=== PATIENT | female | born 1990 | race Caucasian/White ===

== ENCOUNTER 2019-02-26 02:24 | Emergency (ER) | payer OTHER ==
[2019-02-26 02:55] LABS: BASOPHILS # (AUTO) 0.1 10^3/uL (0.0-0.1); BASOPHILS % (AUTO) 0.5 %; EOSINOPHILS # (AUTO) 0.2 10^3/uL (0.0-0.7); EOSINOPHILS % (AUTO) 1.5 %; HGB - HEMOGLOBIN 15.5 g/dL (12.0-16.0); LYMPHOCYTES # (AUTO) 4.3 10^3/uL (1.5-3.5); LYMPHOCYTES % (AUTO) 41.6 %; MEAN CORPUSCULAR HEMOGLOBIN 31.6 pg (27.0-31.0); MEAN CORPUSCULAR HGB CONC 34.2 g/dL (32.0-36.0); MEAN CORPUSCULAR VOLUME 92.4 fL (81.0-99.0); MEAN PLATELET VOLUME 8.6 fL (7.9-10.8); MONOCYTES # (AUTO) 0.7 10^3/uL (0.0-1.0); MONOCYTES % (AUTO) 6.5 %; NEUTROPHILS # (AUTO) 5.1 10^3/uL (1.5-6.6); NEUTROPHILS % (AUTO) 49.4 %; PLT - PLATELET COUNT 298 10^3/uL (130-450); RED CELL DISTRIBUTION WIDTH 12.4 % (12.0-15.0); WHITE BLOOD COUNT 10.3 x10^3/uL (4.8-10.8)
[2019-02-26 02:57] LABS: MUDS CUTOFF CONCENTRATIONS CUTOFF CONC BELOW:
[2019-02-26 03:07] LABS: CALCIUM 9.5 mg/dL (8.5-10.3); CREATININE 0.6 mg/dL (0.4-1.0)
[2019-02-26 03:18] LABS: HCG UR QUAL NEGATIVE
[2019-02-26 03:19] LABS: AMPHETAMINE SCREEN,URINE NEGATIVE (NEGATIVE); BENZODIAZEPINES SCREEN, URINE NEGATIVE (NEGATIVE); COCAINE SCREEN URINE POSITIVE (NEGATIVE); METHADONE SCREEN, URINE NEGATIVE (NEGATIVE); METHAMPHETAMINES SCREEN, URINE NEGATIVE (NEGATIVE); OPIATE SCREEN, URINE NEGATIVE (NEGATIVE); OXYCODONE SCREEN, URINE NEGATIVE (NEGATIVE); PROPOXYPHENE SCREEN, URINE NEGATIVE (NEGATIVE); TRICYCLIC ANTIDEPRESSANT,URINE NEGATIVE (NEGATIVE)
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
[2019-02-26 06:07] LABS: CLARITY,URINE CLEAR (CLEAR); LEUKOCYTE ESTERASE, URINE NEGATIVE (NEGATIVE); NITRITE,URINE NEGATIVE (NEGATIVE); PH,URINE 5.5 PH (5.0-7.5); PROTEIN,URINE NEGATIVE (NEGATIVE); UROBILINOGEN,URINE 0.2 (NORMAL) E.U./dL (NORMAL)
[2019-02-26 06:08] LABS: BILIRUBIN,URINE NEGATIVE (NEGATIVE); GLUCOSE, URINE (UA) NEGATIVE (NEGATIVE); KETONES,URINE (UA) NEGATIVE (NEGATIVE); OCCULT BLOOD,URINE NEGATIVE (NEGATIVE)
[2019-02-26 13:56] LABS: MUDS CUTOFF CONCENTRATIONS CUTOFF CONC BELOW:
[2019-02-26 14:18] LABS: COCAINE SCREEN URINE POSITIVE (NEGATIVE)
[2019-02-26 14:19] LABS: AMPHETAMINE SCREEN,URINE NEGATIVE (NEGATIVE); BENZODIAZEPINES SCREEN, URINE NEGATIVE (NEGATIVE); METHADONE SCREEN, URINE NEGATIVE (NEGATIVE); METHAMPHETAMINES SCREEN, URINE NEGATIVE (NEGATIVE); OPIATE SCREEN, URINE NEGATIVE (NEGATIVE); OXYCODONE SCREEN, URINE NEGATIVE (NEGATIVE); PROPOXYPHENE SCREEN, URINE NEGATIVE (NEGATIVE); TRICYCLIC ANTIDEPRESSANT,URINE NEGATIVE (NEGATIVE)
[2019-02-26] MEDS ORDERED: LORazepam 1 MG TABLET PO STA (17:55)
[2019-02-26 18:17] VITALS: BP 133/89
--- NOTE | 2019-02-26 18:26 | ED Physician Documentation ---
ED Addendum - Addendum Addendum: 02/26/19 18:24 The patient talked with the social and political studies professor and arrangements were made to get to a detox facility. However the patient did become more concerned about missing work and felt she wanted to just be home and take medications. She would like to stop drinking. She is concerned about withdrawal. I told her we could prescribe her medications for nausea and withdrawal. She should follow-up with counseling regarding her PTSD and depression. She would also want to follow-up with a primary care as well. She denies any suicidal ideation. She states she does not want to hurt her self and wants to keep working. At this point we can discharge her with prescriptions.
== END 2019-02-26 18:50 | disposition home or self-care (01) ==
LOC: ED 02:24
DX: F33.1 Major depressive disorder, recurrent, moderate (principal); F10.920 Alcohol use, unspecified with intoxication, uncomplicated
CPT/HCPCS: 36415; 80048; 80320; 81003; 81025; 85025; 99283; 99284; J8499; 80306; 81001; 87086

== ENCOUNTER 2019-10-03 18:20 | Outpatient (CLI) | payer OTHER | END 2019-10-03 18:21 | disposition home or self-care (01) | LOC: COV 18:20 | PROVIDERS: ATTEND Family Medicine | DX: R50.9 Fever, unspecified (principal) | CPT/HCPCS: 81599 ==

== ENCOUNTER 2020-05-20 11:08 | Outpatient (CLI) | payer OTHER | END 2020-05-20 11:09 | disposition home or self-care (01) | LOC: COV 11:08 | PROVIDERS: ATTEND Family Medicine | DX: R50.9 Fever, unspecified (principal); R05 Cough; Z20.828 Contact with and (suspected) exposure to other viral communicable diseases; R53.83 Other fatigue; R43.9 Unspecified disturbances of smell and taste; J02.9 Acute pharyngitis, unspecified; R09.81 Nasal congestion ==

== ENCOUNTER 2020-07-09 12:36 | Emergency (ER) | payer OTHER ==
--- NOTE | 2020-07-09 13:02 | ED Physician Documentation ---
History of Present Illness - Stated complaint Stated Complaint: BACK/SIDE PX - History obtained from History obtained from: Patient - Additonal information Additional information: 29-year-old female presents the emergency department for evaluation of bilateral mid to low back pain and concerns of urinary tract infection. She reports that about 2 weeks ago she had dysuria and urgency. She attempted [id number] probiotic and cranberry juice without relief. She called the telehealth physician on Tuesday and was prescribed azithromycin for suspected urinary tract infection. Today is her last day of the Z-Vic. Since starting the Z-Vic the urgency and urinary frequency has dissipated but the mid to low back pain has persisted. No fevers she has vomited once which she attributes to the antibiotic use. Denies any chest pain or shortness of breath. In 2013 she developed a kidney infection and had subsequent acute kidney injury. She states that she was seen by urologist in follow-up and at the time of follow-up had been told that her kidney function had returned to normal. She has not been seen since. Review of Systems Constitutional: denies: Fever, Chills Eyes: reports: Reviewed and negative Ears: reports: Reviewed and negative Nose: reports: Reviewed and negative Throat: reports: Reviewed and negative Cardiac: reports: Reviewed and negative Respiratory: reports: Reviewed and negative GI: reports: Abdominal Pain, Nausea, Vomiting. denies: Constipation, Diarrhea : reports: Dysuria, Frequency, Hesitancy. denies: Hematuria Skin: reports: Reviewed and negative Musculoskeletal: reports: Reviewed and negative Neurologic: denies: Generalized weakness, Focal weakness, Near syncope, Syncope, Seizure, Confused, Unresponsive, Headache PD PAST MEDICAL HISTORY - Allergies Allergies/Adverse Reactions: Allergies Allergy/AdvReac Type Severity Reaction Status Date / Time Penicillins AdvReac Nausea Verified 07/09/20 12:41 PD ED PE EXPANDED - General General: Alert, No acute distress, Well developed/nourished - Cardiac Cardiac: Tachy, Radial strong equal, Pedal strong equal, Cap refill < 2 sec. No: Murmur Present - Respiratory Respiratory: Clear to ausultation adelia. No: Distress, Labored - Abdomen Abdomen: Normal Bowel sounds, Tender to palpation (bilateral flank without guarding or rebound) - Back Back: Normal exam, CVA TTP right, CVA TTP left. No: Vertebral tenderness Results - Vitals Vitals: Vital Signs - 24 hr 07/09/20 07/09/20 12:42 14:21 Temperature 36.9 C 37.1 C Heart Rate 84 60 Respiratory 16 16 Rate Blood Pressure 143/69 H 132/71 H O2 Saturation 100 100 Oxygen O2 Source Room air - Labs Labs: Laboratory Tests 07/09/20 07/09/20 07/09/20 12:55 12:55 13:06 WBC 9.2 RBC 4.73 Hgb 14.0 Hct 42.7 MCV 90.3 MCH 29.6 MCHC 32.8 RDW 12.3 Plt Count 305 MPV 8.9 Neut # (Auto) 6.0 Lymph # (Auto) 2.7 [place] # (Auto) 0.5 Eos # (Auto) 0.1 Baso # (Auto) 0.0 Absolute Nucleated RBC 0.00 Nucleated RBC % 0.0 Sodium 138 Potassium 3.3 L Chloride 108 Carbon Dioxide 21 Anion Gap 9.0 BUN 10 Creatinine 0.5 Estimated GFR (MDRD) 148 Glucose 113 H Calcium 9.8 Total Bilirubin 0.8 AST 15 ALT 16 Alkaline Phosphatase 69 Total Protein 7.8 Albumin 4.4 Globulin 3.4 Albumin/Globulin Ratio 1.3 Lipase 42 Urine Color YELLOW Urine Clarity CLEAR Urine pH 6.0 Ur Specific [place] <=1.005 Urine Protein NEGATIVE Urine Glucose (UA) NEGATIVE Urine Ketones NEGATIVE Urine Occult Blood NEGATIVE Urine Nitrite NEGATIVE Urine Bilirubin NEGATIVE Urine Urobilinogen 0.2 (NORMAL) Ur Leukocyte Esterase NEGATIVE Ur Microscopic Review NOT INDICATED Urine Culture Comments NOT INDICATED Urine HCG, Qual NEGATIVE - Rads (name of study) CT abd Radiology: Final report received (Normal appendix. No acute intra-abdominal findings) PD MEDICAL DECISION MAKING - ED course Complexity details: reviewed results, re-evaluated patient, considered differential, d/w patient ED course: 29-year-old female presents emergency department for evaluation of bilateral flank pain. This pain mimics similar presentation of acute pyelonephritis and kidney injury/failure about 6 years ago. She was recently treated with azithromycin for suspected urinary tract infection. Here today in the emergency department on screening labs she has no leukocytosis. Renal function is preserved. Her urine shows no signs of infection. However she remains moderately tender over both her flank and CVA. We will proceed with a CT of her abdomen for further evaluation of occult Pyelo, though suspicion is low 1430: Ct unremarkable. Pt pain improved following toradol. will recommend ibuprofen at home for analgesia. Emergent return precautions discussed Departure - Departure Disposition: Home, Self Care Clinical Impression: Bilateral flank pain Condition: Stable Record reviewed to determine appropriate education?: Yes Comments: The labs completed today in the emergency department are all essentially normal. Your urine shows no signs of infection. The CT scan of your abdomen was also normal you do not need any further antibiotics. I would like you to take ibuprofen at home for discomfort (600 mg three times a day.) Please schedule close follow-up with your primary care provider. If at any point you develop fevers higher than 102, have suddenly severe abdominal pain uncontrolled vomiting or failure symptoms or not improving return to the ER for second look
[2020-07-09 13:09] LABS: BASOPHILS % (AUTO) 0.3 %; EOSINOPHILS # (AUTO) 0.1 10^3/uL (0.0-0.7); EOSINOPHILS % (AUTO) 0.5 %; HCT - HEMATOCRIT 42.7 % (37.0-47.0); LYMPHOCYTES # (AUTO) 2.7 10^3/uL (1.5-3.5); LYMPHOCYTES % (AUTO) 29.2 %; MEAN CORPUSCULAR HEMOGLOBIN 29.6 pg (27.0-31.0); MEAN CORPUSCULAR HGB CONC 32.8 g/dL (32.0-36.0); MEAN CORPUSCULAR VOLUME 90.3 fL (81.0-99.0); MEAN PLATELET VOLUME 8.9 fL (7.9-10.8); MONOCYTES # (AUTO) 0.5 10^3/uL (0.0-1.0); NEUTROPHILS % (AUTO) 64.9 %; PLT - PLATELET COUNT 305 10^3/uL (130-450); RED BLOOD COUNT 4.73 10^6/uL (4.20-5.40); RED CELL DISTRIBUTION WIDTH 12.3 % (12.0-15.0); WHITE BLOOD COUNT 9.2 x10^3/uL (4.8-10.8)
[2020-07-09 13:15] LABS: BILIRUBIN,URINE NEGATIVE (NEGATIVE); GLUCOSE, URINE (UA) NEGATIVE (NEGATIVE); KETONES,URINE (UA) NEGATIVE (NEGATIVE); LEUKOCYTE ESTERASE, URINE NEGATIVE (NEGATIVE); NITRITE,URINE NEGATIVE (NEGATIVE); OCCULT BLOOD,URINE NEGATIVE (NEGATIVE); PROTEIN,URINE NEGATIVE (NEGATIVE); UROBILINOGEN,URINE 0.2 (NORMAL) E.U./dL (NORMAL)
[2020-07-09 13:17] LABS: CLARITY,URINE CLEAR (CLEAR); HCG UR QUAL NEGATIVE
[2020-07-09 13:28] LABS: ALBUMIN 4.4 g/dL (3.2-5.5); ALBUMIN/GLOBULIN RATIO 1.3 (1.0-2.2); BILIRUBIN,TOTAL 0.8 mg/dL (0.2-1.0); CALCIUM 9.8 mg/dL (8.5-10.3); CREATININE 0.5 mg/dL (0.4-1.0); POTASSIUM 3.3 mmol/L (3.5-5.0); TOTAL PROTEIN 7.8 g/dL (6.7-8.2)
[2020-07-09] MEDS ORDERED: KETOROLAC 30 MG/ML VIAL IVP STA (13:48)
[2020-07-09] MEDS ORDERED: IOVERSOL 320 100 ML VIAL IVP ONE ×3 (13:57→16:08)
[2020-07-09 14:21] VITALS: BP 132/71
--- NOTE | 2020-07-09 14:26 | CT Report ---
PROCEDURE: Abdomen/Pelvis W INDICATIONS: bilateral flank pain CONTRAST: IV CONTRAST: Optiray 320 ml: 100 PO CONTRAST: *NO PO CONTRAST TECHNIQUE: After the administration of contrast, 5 mm thick sections acquired from the diaphragms to the symphy sis. 5 mm thick coronal and sagittal reformats were acquired. For radiation dose reduction, the fol lowing was used: automated exposure control, adjustment of mA and/or kV according to patient size. COMPARISON: None. FINDINGS: Image quality: Excellent. ABDOMEN: Lung bases: Lung bases are clear. Heart size is normal. Solid organs: Liver and spleen are normal in size. Low density within the medial segment left hepati c lobe adjacent to the falciform fissure is present, compatible with focal fatty infiltration.. Gall bladder Biliary system is non dilated. Pancreas enhances normally. No adrenal nodules. Kidney s demonstrate normal size and enhancement, without hydronephrosis. Peritoneum and bowel: Bowel loops demonstrate normal wall thickness and caliber. No free fluid or a ir. Normal appendix. Nodes and vessels: No retroperitoneal or mesenteric adenopathy by size criteria. Aorta and inferior vena cava are normal in size. Miscellaneous: No ventral hernias. PELVIS: Genitourinary: Bladder wall thickness is normal. Miscellaneous: No inguinal hernias or adenopathy. Bones: No suspicious bony lesions. No vertebral body compression fractures. IMPRESSION: 1. No acute process. 2. Normal appendix. Reviewed by: Villa Sotomayor MD on 07/09/2020 2:25 PM PST Approved by: Villa Sotomayor MD on 07/09/2020 2:25 PM PST Station ID: [id number]
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
== END 2020-07-09 14:50 | disposition home or self-care (01) ==
LOC: ED 12:36
DX: R10.9 Unspecified abdominal pain (principal); M54.5 Low back pain; R11.2 Nausea with vomiting, unspecified; Z87.440 Personal history of urinary (tract) infections
CPT/HCPCS: 36415; 74177; 80053; 81003; 81025; 83690; 85025; 96374; 99284; Q9967; 81001; 87086

== ENCOUNTER 2020-11-11 17:01 | Outpatient (CLI) | payer OTHER | END 2020-11-11 17:02 | disposition home or self-care (01) | LOC: COV 17:01 | PROVIDERS: ATTEND Family Medicine | DX: U07.1 COVID-19 (principal) ==

== ENCOUNTER 2023-10-05 09:16 | Emergency (ER) | payer OTHER ==
[2023-10-05 09:30] VITALS: O2SAT 100
--- NOTE | 2023-10-05 09:43 | ED Physician Documentation ---
PD HPI HEENT - Stated complaint Stated Complaint: RT EAR BLEED - Chief complaint Chief Complaint: Heent - History obtained from History obtained from: Patient - History of Present Illness Timing - onset: Last night Timing - details: Gradual onset (Had congestion and some URI symptoms while visiting in [place] this past week. Flying home yesterday felt some pressure sinuses enroute. Then when plane descended arriving to [facility], she felt increasing pain and pressure in right ear, which then improved from 10/10 to 2/10 along with blood from ear) Location: Right ear, Sinuses Associated symptoms: Congestion. No: Fever, Headache Similar symptoms before: Has not had sx before Review of Systems Ears: reports: Loss of hearing, Ear pain, Drainage/discharge. denies: Tinnitus/ringing, Foreign body, Reviewed and negative Nose: reports: Rhinorrhea / runny nose Throat: denies: Sore throat Respiratory: reports: Cough PD PAST MEDICAL HISTORY - Past Medical History Past Medical History: No - Past Surgical History Past Surgical History: No - Present Medications Home Medications: Ambulatory Orders Medication Instructions Recorded Confirmed Cetirizine [ZyrTEC] 10 mg PO BID #15 tablet 10/05/23 HYDROcod/ACETAM 5/325 [[place] 5/325] 1 ea PO Q6H PRN #10 tablet 10/05/23 Meloxicam [Mobic] 7.5 mg PO BID 10 Days #20 tablet 10/05/23 cephALEXin [Keflex] 500 mg PO TID #20 cap 10/05/23 - Allergies Allergies/Adverse Reactions: Allergies Allergy/AdvReac Type Severity Reaction Status Date / Time Penicillins AdvReac Nausea Verified 10/05/23 09:22 - Social History Does the pt smoke?: No Smoking Status: Never smoker Does the pt drink ETOH?: Yes Does the pt have substance abuse?: No - Immunizations Immunizations are current?: Yes - POLST Patient has POLST: No PD ED PE NORMAL - Vitals Vital signs reviewed: Yes - General General: Alert and oriented X 3, No acute distress, Well developed/nourished - HEENT HEENT: Pharynx benign. No: Ears normal (left has some fluid behind. Right TM with still mostly intact TM but small tear of it at 2 oclock position. Canal itself without infection. Fjluid and redness still significantly of right TM. ) - Neck Neck: Supple, no meningeal sign, No adenopathy - Cardiac Cardiac: RRR, No murmur - Respiratory Respiratory: Clear bilaterally Results - Vitals Vitals: Oxygen O2 Source Room air PD Medical Decision Making - ED course Complexity details: considered differential (URIsymptoms while on trip [place]. Had pain and drainge of ear on flight coming home, with some draiange. NO vertigo. ), d/w patient ED course: appears URI/ear infection with subsequent pressurizing and partial rupture on pressure change in plane descent. Departure - Departure Disposition: Home, Self Care Clinical Impression: Otitis media Qualifiers: Otitis media type: suppurative Chronicity: acute Laterality: right Recurrence: non-recurrent Spontaneous tympanic membrane rupture: with spontaneous rupture Qualified Code(s): H66.011 - Acute suppurative otitis media with spontaneous rupture of ear drum, right ear Condition: Stable Record reviewed to determine appropriate education?: Yes Instructions: ED Otitis Media Acute Adult Follow-Up: Willrad Heath MD [Primary Care Provider] - [facility] [Provider Group] Prescriptions: cephALEXin [Keflex] 500 mg PO TID #20 cap Meloxicam [Mobic] 7.5 mg PO BID 10 Days #20 tablet HYDROcod/ACETAM 5/325 [[place] 5/325] 1 ea PO Q6H PRN #10 tablet PRN Reason: Pain Cetirizine [ZyrTEC] 10 mg PO BID #15 tablet Comments: It does look like an ear infection with still some fluid behind it and a lot of redness and swelling. It does appear that a corner of the eardrum has from the edge. The main portion of the eardrum still looks intact at this point. We would treat the infection with a combination of antibiotic as well as anti- inflammatory and antihistamine to decrease the fluid and inflammation and infection. To that add Tylenol every 4-6 hours if needed for pain and hydrocodone if needed for worse pain. I would attend this did not be needed more than the first couple of days or so as the infection and such are clearing. I sent your prescriptions to your preferred pharmacy, [facility]. This should improve over the next few days and resolved by 4 to 5 days with the exception of decreased hearing on that side until the inflammation and tear of the eardrum improved. However would be good to see that it is healing up appropriately and a recheck of the eardrum in 2 to 3 weeks would be appropriate. This can be through your primary care or abstract searcher. Call for follow-up appointment for that timeframe. Return or recheck if not improved well in the above timeframe. I am prescribing a short course of narcotic pain medication for you. These are potentially dangerous and addictive medications that should be used carefully. These medications may constipate you. Take an [id number] stool softener such as docusate twice daily with plenty of water while taking these medications. If you go 24 hours without a bowel movement, take [id number] MiraLAX, per package instructions. Do not drink or drive while taking these medications. If you received narcotic or sedating medications while in the emergency department do not drive for 24 hours. Store this medication in a safe, secure place and out of reach of children. It is a violation of federal law to give or sell this medication to another person or to use in a manner other than prescribed. The ED will not refill narcotic prescriptions, including prescriptions lost or stolen. You can dispose of unwanted medications at the [facility]'s office or at several pharmacies such as [facility]. Forms: PCP List Discharge Date/Time: 10/05/23 11:15
[2023-10-05] MEDS: cephALEXin 250 MG CAPSULE PO STA (11:00)
[2023-10-05] MEDS: ACETAMINOPHEN 500 MG TABLET PO STA (11:00)
[2023-10-05 11:20] VITALS: BP 122/72
== END 2023-10-05 11:15 | disposition home or self-care (01) ==
LOC: ED 09:16
DX: H66.011 Acute suppurative otitis media with spontaneous rupture of ear drum, right ear (principal)
CPT/HCPCS: 99283; A9270

== ENCOUNTER 2023-10-17 08:00 | Outpatient (CLI) | payer OTHER ==
[2023-10-17 22:22] LABS: CHLAMYDIA TRACHOMATIS DNA NEGATIVE (NEGATIVE); NEISSERIA GONORRHOEAE DNA NEGATIVE (NEGATIVE)
[2023-10-17 23:53] LABS: BACTERIAL VAGINOSIS DNA NEGATIVE (NEGATIVE); CANDIDA GLABRATA DNA NEGATIVE (NEGATIVE); CANDIDA GROUP DNA POSITIVE (NEGATIVE); CANDIDA KRUSEI DNA NEGATIVE (NEGATIVE); TRICHOMONAS VAGINALIS DNA NEGATIVE (NEGATIVE)
== END 2023-10-17 23:59 | disposition home or self-care (01) ==
LOC: LAB.WC 08:00
PROVIDERS: ATTEND Nurse Practitioner
DX: N89.8 Other specified noninflammatory disorders of vagina (principal); N90.89 Other specified noninflammatory disorders of vulva and perineum
CPT/HCPCS: 81514; 87491; 87529; 87591; 87661